=== PATIENT | female | born 1990 | race Caucasian/White ===

== ENCOUNTER 2017-06-20 14:09 | Emergency (ER) | payer OTHER ==
[~2017-06-20] VITALS: Ht 170.1 cm; Wt 54.4 kg
[~2017-06-20 14:09] MED LIST: AMITRIPTYLINE25 MG PO; AMOXICILLIN500 MG PO; ANAPROX DS550 MG PO; AUGMENTIN 875 M1 TAB PO; AUGMENTIN 875875 MG PO; BACTRIM DS 8001 TA1 PO; BIRTHCONTROL PO; CLARITIN10 MG PO; FLEXERIL5 MG PO; HUMARA; HYDROCODONE BIT1 T11 PO; IBU-6600 MG PO; KEFLEX500 MG PO; LEVOFLOXACIN500 MG PO; MAALOX PO; MACROBID100 M1 PO; MOTRIN800 MG PO; PRENATAL1 TA1 PO; PRENATAL1 TA7 PO; Phenergan25 MG PO; TYLENOL W/CODEI1 TA2 PO; ZANTAC150 MG PO; ZITHROMAX Z PA250 MG PO; ZOFRAN ODT4 MG SL; ZOFRAN4 MG PO; ZOLOFT100 MG PO; [UNRECOGNIZED DRUG - OTHER] PO
[2017-06-20] MEDS ORDERED: TESSALON PERLE100 M1 PO (16:34)
[2017-06-20] MEDS ORDERED: PROVENTIL HFA6.7 GM INH (16:34)
[2017-06-20] MEDS ORDERED: ZITHROMAX250 MG PO (16:34)
== END 2017-06-20 16:39 | disposition home or self-care (01) ==
LOC: ED 14:09
DX: J40 Bronchitis, not specified as acute or chronic (principal); Z79.899 Other long term (current) drug therapy

== ENCOUNTER 2018-07-10 21:40 | Emergency (ER) | payer OTHER ==
[~2018-07-10] VITALS: Ht 170.1 cm; Wt 56.7 kg
[~2018-07-10 21:40] MED LIST changes: +PROVENTIL HFA6.7 GM INH; +TESSALON PERLE100 M1 PO; +ZITHROMAX250 MG PO
[2018-07-10] MEDS ORDERED: NUVARING VAGIN1 EACH (21:47)
[2018-07-12] MEDS ORDERED: CYCLOBENZAPRINE10 MG PO (10:11)
== END 2018-07-10 23:42 | disposition home or self-care (01) ==
LOC: ED 21:40
DX: S01.01XA Laceration without foreign body of scalp, initial encounter (principal); Y08.89XA Assault by other specified means, initial encounter; Y93.89 Activity, other specified; Y92.098 Other place in other non-institutional residence as the place of occurrence of the external cause; Y99.8 Other external cause status

== ENCOUNTER 2019-05-28 07:50 | Emergency (ER) | payer OTHER ==
[~2019-05-28] VITALS: Ht 170.1 cm; Wt 56.7 kg
[~2019-05-28 07:50] MED LIST changes: +CYCLOBENZAPRINE10 MG PO; +NUVARING VAGIN1 EACH
[2019-05-28 08:46] LABS: BASO % 0.5 % (0.0-1.0); EOS % 0.2 % (1.0-4.0); HEMATOCRIT 39.7 % (37.0-47.0); HEMOGLOBIN 13.3 g/dl (12.0-16.0); LYMPH # 0.8 10*3/uL (1.3-4.4); LYMPH % 12.4 % (27.0-41.0); MEAN CELL VOLUME 88.4 fl (81.0-99.0); MEAN CORPUSCULAR HGB 29.6 pg (27.0-31.0); MEAN CORPUSCULAR HGB CONC 33.5 g/dl (33.0-37.0); MEAN PLATELET VOLUME 9.4 fl (9.6-12.3); MONO # 0.7 10*3/uL (0.1-1.0); NEUT # 5.1 10*3/uL (2.3-7.9); NEUT % 76.6 % (47.0-73.0); PLATELET COUNT AUTOMATED 198 10*3/uL (130-400); RED BLOOD COUNT 4.49 10*6/uL (4.10-5.10); RED CELL DISTRI WIDTH 11.8 % (0-14.5); WHITE BLOOD COUNT 6.6 10*3/uL (4.8-10.8)
[2019-05-28 09:02] LABS: BUN 6 mg/dl (7-24); CHLORIDE 108 mmol/L (98-107); CREATININE 0.79 mg/dL (0.55-1.02); POTASSIUM 3.7 mmol/L (3.5-5.1); SODIUM 139 mmol/L (136-145)
[2019-05-28] MEDS ORDERED: TAMIFLU 75MG CA75 MG PO (09:45)
== END 2019-05-28 10:07 | disposition home or self-care (01) ==
LOC: ED 07:50
PROVIDERS: Internal Medicine
DX: J10.1 Influenza due to other identified influenza virus with other respiratory manifestations (principal); F32.9 Major depressive disorder, single episode, unspecified; F41.9 Anxiety disorder, unspecified; Z79.899 Other long term (current) drug therapy

== ENCOUNTER → 2019-06-25 | Outpatient (CLI) | payer OTHER ==
[~2019-06-25] MED LIST changes: +TAMIFLU 75MG CA75 MG PO
== END | disposition home or self-care (01) ==
LOC: RAD 16:11
DX: S62.202D Unspecified fracture of first metacarpal bone, left hand, subsequent encounter for fracture with routine healing (principal); X58.XXXD Exposure to other specified factors, subsequent encounter

== ENCOUNTER 2019-08-25 21:22 | Emergency (ER) | payer OTHER ==
[2019-08-25 22:14] LABS: BASO # 0.1 10*3/uL (0.0-0.1); BASO % 0.7 % (0.0-1.0); EOS # 0.1 10*3/uL (0.0-0.4); EOS % 0.6 % (1.0-4.0); HEMATOCRIT 39.1 % (37.0-47.0); LYMPH # 2.8 10*3/uL (1.3-4.4); LYMPH % 32.6 % (27.0-41.0); MEAN CELL VOLUME 87.1 fl (81.0-99.0); MEAN CORPUSCULAR HGB 29.6 pg (27.0-31.0); MEAN PLATELET VOLUME 9.5 fl (9.6-12.3); MONO # 0.5 10*3/uL (0.1-1.0); NEUT # 5.2 10*3/uL (2.3-7.9); NEUT % 59.9 % (47.0-73.0); PLATELET COUNT AUTOMATED 257 10*3/uL (130-400); RED BLOOD COUNT 4.49 10*6/uL (4.10-5.10); RED CELL DISTRI WIDTH 12.4 % (0-14.5); WHITE BLOOD COUNT 8.7 10*3/uL (4.8-10.8)
[2019-08-25 22:24] LABS: ALBUMIN 3.7 gm/dl (3.1-4.5); ALKALINE PHOSPHATASE 74 U/L (45-117); BUN 10 mg/dl (7-24); CHLORIDE 111 mmol/L (98-107); CREATININE 0.84 mg/dL (0.55-1.02); LIPASE 131 U/L (73-393); POTASSIUM 3.4 mmol/L (3.5-5.1); SGOT/AST 11 IU/L (3-35); SGPT/ALT 24 U/L (12-78); SODIUM 140 mmol/L (136-145); TOTAL PROTEIN 7.2 gm/dL (6.4-8.2)
[2019-08-25] MEDS ORDERED: PROTONIX40 MG PO (23:40)
[2019-08-25] MEDS ORDERED: ZOFRAN4 MG PO (23:40)
== END 2019-08-26 00:15 | disposition home or self-care (01) ==
LOC: ED 21:22
PROVIDERS: Nurse Practitioner Family
DX: K59.00 Constipation, unspecified (principal); Z79.899 Other long term (current) drug therapy

== ENCOUNTER 2019-09-03 09:39 | Emergency (ER) | payer OTHER ==
[~2019-09-03] VITALS: Ht 170.1 cm; Wt 59.0 kg
[~2019-09-03 09:39] MED LIST changes: +PROTONIX40 MG PO
[2019-09-03 10:01] LABS: BASO # 0.1 10*3/uL (0.0-0.1); BASO % 0.8 % (0.0-1.0); EOS # 0.1 10*3/uL (0.0-0.4); EOS % 0.7 % (1.0-4.0); HEMATOCRIT 41.6 % (37.0-47.0); LYMPH % 25.6 % (27.0-41.0); MEAN CELL VOLUME 88.9 fl (81.0-99.0); MEAN CORPUSCULAR HGB 29.3 pg (27.0-31.0); MEAN CORPUSCULAR HGB CONC 32.9 g/dl (33.0-37.0); MEAN PLATELET VOLUME 9.2 fl (9.6-12.3); MONO # 0.5 10*3/uL (0.1-1.0); MONO % 6.5 % (3.0-9.0); NEUT # 5.1 10*3/uL (2.3-7.9); NEUT % 66.3 % (47.0-73.0); PLATELET COUNT AUTOMATED 257 10*3/uL (130-400); RED BLOOD COUNT 4.68 10*6/uL (4.10-5.10); RED CELL DISTRI WIDTH 12.4 % (0-14.5); WHITE BLOOD COUNT 7.7 10*3/uL (4.8-10.8)
[2019-09-03 10:21] LABS: ALBUMIN 3.7 gm/dl (3.1-4.5); ALKALINE PHOSPHATASE 71 U/L (45-117); BUN 9 mg/dl (7-24); CHLORIDE 111 mmol/L (98-107); CREATININE 0.87 mg/dL (0.55-1.02); LIPASE 174 U/L (73-393); POTASSIUM 3.9 mmol/L (3.5-5.1); SGOT/AST 15 IU/L (3-35); SGPT/ALT 21 U/L (12-78); SODIUM 140 mmol/L (136-145); TOTAL PROTEIN 7.4 gm/dL (6.4-8.2)
[2019-09-03 10:24] LABS: BILIRUBIN NEGATIVE (NEGATIVE); BLOOD NEGATIVE (NEGATIVE); CLARITY CLOUDY (CLEAR); COLOR YELLOW (YELLOW); GLUCOSE NEGATIVE (NEGATIVE); KETONE NEGATIVE (NEGATIVE); LEUKO ESTERASE NEGATIVE (NEGATIVE); NITRITE NEGATIVE (NEGATIVE); PH 6.5 (5.0-9.0); UROBILINOGEN 0.2 E.U./dl (0.2-1.0)
[2019-09-03 10:29] LABS: BACTERIA 2+; EPITHELIAL CELLS 41-50; MUCOUS 1+
[2019-09-03] MEDS ORDERED: MIRALAX POWDER17 G1 PO (13:48)
[2019-09-03] MEDS ORDERED: KETOROLAC10 MG PO (13:48)
[2019-09-03] MEDS ORDERED: FLOMAX0.4 MG PO (13:48)
[2019-09-03] MEDS ORDERED: ZOFRAN4 MG PO (13:48)
== END 2019-09-03 14:07 | disposition home or self-care (01) ==
LOC: ED 09:39
PROVIDERS: Nurse Practitioner Family
DX: N20.0 Calculus of kidney (principal); K59.00 Constipation, unspecified; Z79.899 Other long term (current) drug therapy

== ENCOUNTER → 2019-09-04 | Outpatient (CLI) | payer OTHER ==
[~2019-09-04] MED LIST changes: +FLOMAX0.4 MG PO; +KETOROLAC10 MG PO; +MIRALAX POWDER17 G1 PO
[2019-09-04 14:11] LABS: LIPASE 121 U/L (73-393)
== END | disposition home or self-care (01) ==
LOC: LAB 12:51
PROVIDERS: Family Medicine
DX: K85.90 Acute pancreatitis without necrosis or infection, unspecified (principal)

== ENCOUNTER → 2019-09-15 | Outpatient (CLI) | payer OTHER | LOC: NM 06:50 | DX: R10.11 Right upper quadrant pain (principal) ==